=== PATIENT | female | born 1940 | race Caucasian/White ===

== ENCOUNTER 2023-12-17 19:59 | Emergency (ER) | payer MEDICARE, OTHER ==
[2023-12-17] MEDS: LORazepam 2 MG/ML SDV IM ONE (21:04)
[2023-12-17 22:07] VITALS: BP 121/49; PULSE 80
== END 2023-12-17 22:30 | disposition home or self-care (01) ==
LOC: JP.ED 19:59
DX: F41.9 Anxiety disorder, unspecified (principal); I10 Essential (primary) hypertension; Z79.899 Other long term (current) drug therapy; Z79.82 Long term (current) use of aspirin; Z88.2 Allergy status to sulfonamides; Z91.018 Allergy to other foods; Z88.0 Allergy status to penicillin; Z88.1 Allergy status to other antibiotic agents
CPT/HCPCS: 96372; 99283; J2060